=== PATIENT | male | born 1950 | race Caucasian/White ===

== ENCOUNTER → 2019-08-23 11:56 | Outpatient (CLI) | payer MEDICARE, SELFPAY ==
--- NOTE | 2019-08-23 12:25 | US_ITS ---
PROCEDURE: US KIDNEY CLINICAL INDICATION: R39.11 Hesitancy of micturition COMPARISON: No exams were available for comparison FINDINGS: The right kidney is [id number]. No hydronephrosis, cortical thinning, or renal mass or perinephric fluid collection is evident. The left kidney is [id number]. No hydronephrosis, cortical thinning, or perinephric fluid collection is evident. A cortical cyst 1.3 x 1.3 x 1.2 centimeters is seen in the upper pole. IMPRESSION: Cortical cyst of left kidney otherwise unremarkable exam. Dictated by: Sidney Brar 08/23/2019 13:35 Electronically signed by Sidney Brar in [facility] 08/23/2019 13:35
--- NOTE | 2019-08-23 12:25 | US_ITS ---
PROCEDURE: US URINARY BLADDER CLINICAL INDICATION: urinary urgency COMPARISON: No exams were available for comparison FINDINGS: The filled urinary bladder volume was calculated to be 110 cc. Bladder is suboptimally distended. No focal wall thickening mass or intraluminal stone is apparent. Post void bladder volume was calculated to be 5 cc. IMPRESSION: 5 cc postvoid residual. Dictated by: Sidney Brar 08/23/2019 14:04 Electronically signed by Sidney Brar in [facility] 08/23/2019 14:04
[2019-08-23 12:57] LABS: Basophils % 0.2 % (0.1-2.0); Eosinophils % 0.5 % (0.1-12.0); Hematocrit 45.4 % (42.0-52.0); Lymphocytes # 1.4 K/mm3 (0.7-4.5); Lymphocytes % 16.2 % (10-50); Mean Corpuscular HGB Conc 32.9 g/dL (31.8-35.4); Mean Corpuscular Hemoglobin 28.3 pg (27.0-31.2); Mean Corpuscular Volume 85.9 fl (80-94); Monocytes # 0.5 K/mm3 (0.1-1.0); Monocytes % 5.2 % (1.7-9.3); Neutrophils # 6.6 K/mm3 (1.8-7.8); Neutrophils % 77.8 % (37.0-80.0); Platelet Count 179 K/mm3 (142-424); Red Blood Count 5.29 M/mm3 (4.60-6.20); Red Cell Distribution Width 13.6 % (11.5-17.5); White Blood Count 8.5 K/mm3 (4.8-10.8)
[2019-08-23 16:29] LABS: Anion Gap 12.6 mEq/L (5-15); Blood Urea Nitrogen 16 mg/dl (9-20); Calcium 9.7 mg/dl (8.4-10.2); Carbon Dioxide 30 mmol/L (22.0-30.0); Chloride 97 mmol/L (98-107); Estimated Glomerular Filt Rate 83 ml/min (>60); GFR (African American) 101 ML/MIN (>60); Glucose 114 mg/dl (74-100); Potassium 3.6 mmoL/L (3.5-5.1); Sodium 136 mmol/L (136-145)
[2019-08-24 10:37] LABS: PSA, Free 0.34 ng/mL; Prostate Specific Ag 1.5 ng/mL (0.0-4.0)
== END ==
PROVIDERS: Visit Provider Nurse Practitioner Family
DX: R35.0 Frequency of micturition (principal); R39.11 Hesitancy of micturition; R39.15 Urgency of urination
CPT/HCPCS: 36415; 76770; 76857; 80048; 84153; 84154; 85025

== ENCOUNTER → 2019-08-28 07:37 | Outpatient (CLI) | payer MEDICARE, SELFPAY ==
--- NOTE | 2019-08-28 07:38 | CT_ITS ---
PROCEDURE: CT ABDOMEN PELVIS WO CON CLINICAL INDICATION: abdominal pain Mid epigastric pain COMPARISON: No exams were available for comparison TECHNIQUE: Axial images obtained with sagittal and coronal reformats. All CT scans at the facility use one or more dose reduction, viz: automated exposure control, ma/kV adjustment per patient size (including targeted exams where dose is matched to indication, i.e. head), or iterative reconstruction technique. Oral contrast was given. FINDINGS: LOWER THORAX: Coronary artery calcifications and/or stents noted ABDOMEN & PELVIS: The liver, gallbladder, spleen, and adrenal glands have an unremarkable appearance. No renal or ureteral calculi or hydronephrosis. There is a 13 mm hypodensity in the mid aspect of the left kidney anteriorly consistent with a renal cyst. There is diffuse fatty infiltration of the pancreas. No pancreatic mass. No evidence of appendicitis. There is diverticulosis of the sigmoid colon but no evidence of diverticulitis. No intestinal obstruction or free air. There is a mild amount of retained colonic feces. No pelvic mass or abnormal fluid collection. There is degenerative disc disease at L5-S1 with grade 1 spondylitic spondylolisthesis at L5-S1. IMPRESSION: 1. No acute finding. 2. Mild amount of retained colonic feces. Diverticulosis of the colon without evidence of diverticulitis. Dictated by: Addy Rowe MD 08/29/2019 07:11 Electronically signed by Addy Rowe MD in [facility] 08/29/2019 07:11
== END ==
PROVIDERS: Visit Provider Internal Medicine
DX: R10.9 Unspecified abdominal pain (principal); R11.0 Nausea; R06.00 Dyspnea, unspecified
CPT/HCPCS: 74176

== ENCOUNTER 2020-03-06 08:25 | Day surgery (SDC) | payer MEDICARE, SELFPAY ==
[2020-03-06] VITALS (9 sets, daily range): BP systolic 126–185; BP diastolic 59–93; PULSE 48–78; RESP 16–20; TEMP 36.8; O2SAT 94–99; BMI 23.9
--- NOTE | 2020-03-06 | IR_ITS ---
APPROVED REPORT Patient [facility]: [facility] Teacher: AL Aguilera RT (R) PROCEDURES 1. Pocket formation for Permanent Pacemaker Placement. 2. Placement of an atrial sensing and pacing coil into the right atrial appendage. 3. Placement of a ventricular sensing and pacing coil in the right ventricular apex. 4. Permanent Pacemaker Placement. INDICATION Symptomatic Bradycardia Informed consent was obtained prior to the procedure. COMPLICATIONS None Estimated Blood Loss: less than 10 ml TECHNIQUE 1% Lidocaine with epinephrine used to anesthetized the left anterior aspect of the chest. Scalpel was used to make the initial cutaneous incision while electrocautery was used to dissect down tinto the fascia. The fascia was lifted off the pectoralis muscle and digitally manipulated creating a pocket for the pacemaker. The patient was then placed in Trendelenburg position and the subclavian vein was accessed twice via the Selinger technique, there are two wires in the vein. A 6 Guamanian sheath was placed under fluoroscopic guidance into the subclavian vein over one of the wires while keeping the other wire in place within the subclavian vein. The dilator was removed from the sheath. Using fluoroscopic guidance, the ventricular lead was placed into the right ventricular apex, screwed and secured into place. Electronic interrogation proved acceptable thresholds and voltage within the lead. Using 3-0 silk, the ventricular lead was then secured into place. Lead was secured to the facia using the 3-0 silk. Following this, the sheath was pealed away. An additional 6 Guamanian fresh sheath and dilator was placed over the existing wire. Using fluoroscopic guidance, the atrial lead was the placed into the right atrial appendage and screwed and secured in place. Electrical interrogation demonstrated acceptable thresholds and voltage number. The atrial lead was then secured into place using 3-0 silk. 1 gram of Ancef was used to flush the pocket. Following the pacemaker generator being secured to the fascia and in place, Monocryl was used to close the subcutaneous layers while anthony were used to close the cutaneous layer. A pressure dressing was placed and the patient was transferred to the postop holding area in stable condition for postoperative care. INTERROGATION Generator Model number: [employer]IP DANG MANCUSO IS-1 L311 Generator Serial number: [id number] Atrial lead model number: INGEVITY [id number] Atrial lead serial number: [id number] P-wave: 3.0 mV Impedence: 667 Ohms Threshold: 0.4V Right Ventricular lead model number: LAURENITY 7841 Right Ventricular lead serial number: [id number] R-wave: 9.0 mV Impedence: 900 Ohms Threshold: 0.5 mV Pacing Parameters: Mode: DDDR Base/Max Track: 60/130 PPM No diaphragmatic stimulation at 10 volts. IMPRESSION 1. Successful pocket formation for Permanent Pacemaker Placement. 2. Successful placement of an atrial sensing and pacing coil into the right atrial appendage. 3. Successful placement of a ventricular sensing and pacing coil in the right ventricular apex. 4. Successful permanent Pacemaker Placement. PLAN 1. Post-op wound care. Electronically signed by : Alcides Rice, 03/07/2020 09:29:40
[2020-03-06 09:08] LABS: Basophils % 0.4 % (0.1-2.0); Chloride 107 mmol/L (98-107); Eosinophils # 0.2 K/mm3 (0.0-0.4); Eosinophils % 1.9 % (0.1-12.0); Hematocrit 40.1 % (42.0-52.0); Hemoglobin 13.1 g/dL (14.1-18.0); Lymphocytes % 24.7 % (10-50); Mean Corpuscular HGB Conc 32.7 g/dL (31.8-35.4); Mean Corpuscular Hemoglobin 28.9 pg (27.0-31.2); Mean Corpuscular Volume 88.4 fl (80-94); Mean Platelet Volume 8.5 fl (7.4-10.4); Monocytes # 0.5 K/mm3 (0.1-1.0); Monocytes % 6.1 % (1.7-9.3); Neutrophils # 5.4 K/mm3 (1.8-7.8); Neutrophils % 66.8 % (37.0-80.0); Platelet Count 165 K/mm3 (142-424); Red Blood Count 4.54 M/mm3 (4.60-6.20); Red Cell Distribution Width 14.3 % (11.5-17.5); Sodium 143 mmol/L (136-145)
[2020-03-06 09:11] LABS: Blood Urea Nitrogen 14 mg/dl (9-20); Calcium 9.3 mg/dl (8.4-10.2); Carbon Dioxide 26 mmol/L (22.0-30.0); Creatinine Clearance Estimated 71 mL/min (50-200); Estimated Glomerular Filt Rate 96 ml/min (>60); GFR (African American) 116 ML/MIN (>60); Glucose 97 mg/dl (74-100)
--- NOTE | 2020-03-06 09:49 | HMH.ANESCL ---
[facility] Anesthesia Checklist - Patient Identification Patient Identification: Arm Band - Structural Data Admitted From: Inpatient Planned Operative Procedure/s: Dual Chamber Pacemaker Consent for Planned Operative Procedure(s) Verified: Yes Verified Documents: Surgical Consent, History and Physical - NPO Status Verified Time NPO: 00:00 - Additional verifications Anesthesia Reactions: No - Airway Assessment C-Spine Mobility Assessed: Yes TMJ Mobility Assessed: Yes Dentition: Dentures-good fit (upper dentures. Pt requests to keep dentures in saying the are very tight fitting. Risks of dental damage discussed with pt. Pt verbalizes understanding) - Neurological Assessment Level of Consciousness: Awake, Alert - Anesthesia Plan Anesthesia Risk discussed: Yes Anesthesia Plan: Verified ASA Class: III Anesthesia Type: MAC [facility] History I have reviewed the patient's past medical history: Yes Medical History: Reports:: Coronary Artery Disease, Hyperlipidemia, Hypertension *Have you ever received a pneumonia vaccine?: Yes *Have you received a flu vaccine this season?: Yes Anesthesia experience/problems:: nac Laterality Cases: Left: Arthroscopy Shoulder Other Surgeries: Yes: Cardiac Catheterization, Coronary Stent, Sinus Surgery Amputation: No Fractures: No - *Social History Last grade of school completed: 9th or 10th Smoking Status: Former smoker Tobacco Type: cigarettes Alcohol Intake: never Substance Use Type: denies use *Occupational Status:: retired *Travel in the last 8 weeks: None Family Hx:: Hypertension, Coronary Artery Disease, Heart Attack
--- NOTE | 2020-03-06 12:01 | XR_ITS ---
PROCEDURE: XR CHEST PORTABLE CLINICAL HISTORY: Confirm pacemaker/AID placement COMPARISON: No exams were available for comparison FINDINGS: The cardiomediastinal silhouette and pulmonary vascularity are within normal limits. The left-sided cardiac pacemaker is seen with dual chamber electrodes both in good position. There are metallic surgical clips seen just beneath the left clavicle. There may be minimal atelectasis at the left base. The lung espinoza appear to be clear of active infiltrate. There is no pleural fluid. There is no pneumothorax. IMPRESSION: Satisfactory infraclavicular pacemaker Dictated by: Dr. John Gaelano MD 03/06/2020 12:59 Dr. John Galeano MD in [facility] 03/06/2020 12:59
== END 2020-03-06 13:35 | disposition home or self-care (01) ==
PROVIDERS: Visit Provider Internal Medicine
DX: I49.5 Sick sinus syndrome (principal); I25.10 Atherosclerotic heart disease of native coronary artery without angina pectoris; I10 Essential (primary) hypertension; I27.20 Pulmonary hypertension, unspecified; Z95.5 Presence of coronary angioplasty implant and graft; Z88.8 Allergy status to other drugs, medicaments and biological substances; Z79.02 Long term (current) use of antithrombotics/antiplatelets; Z79.899 Other long term (current) drug therapy
CPT/HCPCS: 33208; 71045; 80048; 85025; C1785; C1898

== ENCOUNTER → 2021-05-19 12:05 | Outpatient (CLI) | payer MEDICARE, SELFPAY ==
[2021-05-19 12:32] LABS: Basophils # 0.1 K/mm3 (0-0.2); Basophils % 0.9 % (0.1-2.0); Eosinophils # 0.2 K/mm3 (0.0-0.4); Eosinophils % 2.8 % (0.1-12.0); Hematocrit 40.5 % (42.0-52.0); Hemoglobin 13.6 g/dL (14.1-18.0); Lymphocytes # 1.6 K/mm3 (0.7-4.5); Lymphocytes % 23.5 % (10-50); Mean Corpuscular HGB Conc 33.6 g/dL (31.8-35.4); Mean Corpuscular Hemoglobin 29.2 pg (27.0-31.2); Mean Corpuscular Volume 86.8 fl (80-94); Mean Platelet Volume 9.7 fl (7.4-10.4); Monocytes # 0.4 K/mm3 (0.1-1.0); Monocytes % 5.8 % (1.7-9.3); Neutrophils # 4.7 K/mm3 (1.8-7.8); Platelet Count 193 K/mm3 (142-424); Red Blood Count 4.66 M/mm3 (4.60-6.20); Red Cell Distribution Width 14.6 % (11.5-17.5); White Blood Count 6.9 K/mm3 (4.8-10.8)
[2021-05-19 12:51] LABS: Alanine Aminotransferase 25 U/L (12-78); Albumin Level 4.1 g/dl (3.5-5.0); Alkaline Phosphatase 111 U/L (38-126); Anion Gap 7.5 mEq/L (5-15); Aspartate Amino Transferase 29 U/L (17-59); Bilirubin,Direct 0.1 mg/dl (0.0-0.4); Bilirubin,Indirect 0.3 mg/dL (0.0-0.9); Bilirubin,Total 0.4 mg/dl (0.2-1.3); Bilirubin,Unconjugated 0.4 mg/dL (0.0-1.1); Blood Urea Nitrogen 18 mg/dl (9-20); Carbon Dioxide 33 mmol/L (22.0-30.0); Chloride 104 mmol/L (98-107); Chol/HDL Ratio 2.4 (1-3.5); Cholesterol 79 mg/dl (140-200); Estimated Glomerular Filt Rate 95 ml/min (>60); GFR (African American) 115 ML/MIN (>60); Glucose 93 mg/dl (74-100); HDL Cholesterol 33 mg/dl (40-60); Potassium 4.5 mmoL/L (3.5-5.1); Sodium 140 mmol/L (136-145); Total Protein,Serum 6.8 g/dl (6.3-8.2); Triglycerides 72 mg/dl (30-150); VLDL Cholesterol 14 mg/dL (0-40)
[2021-05-19 13:02] LABS: Direct LDL Cholesterol 49.26 mg/dL (100-129)
[2021-05-19 13:08] LABS: Free T4 (Free Thyroxine) 1.23 ng/dl (0.78-2.19)
[2021-05-19 13:24] LABS: Thyroid Stimulating Hormone 2.95 uIU/mL (0.465-4.68)
== END ==
PROVIDERS: Visit Provider Urology
DX: E78.2 Mixed hyperlipidemia (principal); I10 Essential (primary) hypertension; I25.10 Atherosclerotic heart disease of native coronary artery without angina pectoris; I27.20 Pulmonary hypertension, unspecified; I48.91 Unspecified atrial fibrillation; Z95.0 Presence of cardiac pacemaker
CPT/HCPCS: 36415; 80048; 80061; 80076; 84439; 84443; 85025

== ENCOUNTER → 2022-06-08 07:24 | Outpatient (CLI) | payer MEDICARE, SELFPAY ==
--- NOTE | 2022-06-08 08:45 | HMH.ITSHM ---
Current Home Medications as stated by this patient Selvin Matute or patient services representative. []PANTOPRAZOLE LISINOPRIL CLOOPIDOGREL BISOPROLOL ATORVASTATIN AMLODIPINE
== END ==
PROVIDERS: PCP Internal Medicine; Visit Provider Nurse Practitioner Family
DX: E78.2 Mixed hyperlipidemia (principal); I10 Essential (primary) hypertension; I25.10 Atherosclerotic heart disease of native coronary artery without angina pectoris; I27.20 Pulmonary hypertension, unspecified; I48.91 Unspecified atrial fibrillation; I61.9 Nontraumatic intracerebral hemorrhage, unspecified; K21.9 Gastro-esophageal reflux disease without esophagitis; R07.89 Other chest pain; Z87.891 Personal history of nicotine dependence; Z95.0 Presence of cardiac pacemaker
CPT/HCPCS: 78452; 93017; 93306; A9502; J2785

== ENCOUNTER 2023-11-30 09:57 | Outpatient (CLI) | payer MEDICARE, SELFPAY ==
[2023-11-30 10:29] LABS: Basophils # 0.1 K/mm3 (0-0.2); Eosinophils # 0.1 K/mm3 (0.0-0.4); Eosinophils % 2.2 % (0.1-12.0); Hematocrit 47.8 % (42.0-52.0); Hemoglobin 15.4 g/dL (14.1-18.0); Lymphocytes # 1.2 K/mm3 (0.7-4.5); Lymphocytes % 18.7 % (10-50); Mean Corpuscular HGB Conc 32.2 g/dL (31.8-35.4); Mean Corpuscular Hemoglobin 29.7 pg (27.0-31.2); Mean Corpuscular Volume 92.1 fl (80-94); Mean Platelet Volume 9.4 fl (7.4-10.4); Monocytes # 0.3 K/mm3 (0.1-1.0); Monocytes % 4.8 % (1.7-9.3); Neutrophils # 4.5 K/mm3 (1.8-7.8); Neutrophils % 73.3 % (37.0-80.0); Platelet Count 164 K/mm3 (142-424); Red Blood Count 5.19 M/mm3 (4.60-6.20); Red Cell Distribution Width 13.9 % (11.5-17.5); White Blood Count 6.1 K/mm3 (4.8-10.8)
[2023-11-30 11:13] LABS: Alanine Aminotransferase 18 U/L (12-78); Albumin Level 4.1 g/dl (3.5-5.0); Alkaline Phosphatase 112 U/L (38-126); Anion Gap 11.8 mEq/L (5-15); Aspartate Amino Transferase 29 U/L (17-59); Bilirubin,Indirect 0.8 mg/dL (0.0-0.9); Bilirubin,Total 0.8 mg/dl (0.2-1.3); Bilirubin,Unconjugated 0.8 mg/dL (0.0-1.1); Blood Urea Nitrogen 16 mg/dl (9-20); Calcium 9.2 mg/dl (8.4-10.2); Carbon Dioxide 30 mmol/L (22.0-30.0); Chloride 102 mmol/L (98-107); Chol/HDL Ratio 3.1 (1-3.5); Cholesterol 150 mg/dl (140-200); Estimated Glomerular Filt Rate 65 ml/min (>60); GFR (African American) 79 ML/MIN (>60); Glucose 99 mg/dl (74-100); HDL Cholesterol 48 mg/dl (40-60); Potassium 3.8 mmoL/L (3.5-5.1); Sodium 140 mmol/L (136-145); Total Protein,Serum 7.1 g/dl (6.3-8.2); Triglycerides 111 mg/dl (30-150); VLDL Cholesterol 22 mg/dL (0-40)
[2023-11-30 11:24] LABS: Direct LDL Cholesterol 85.26 mg/dL (100-129)
[2023-11-30 11:42] LABS: Thyroid Stimulating Hormone 2.08 uIU/mL (0.465-4.68)
== END 2023-11-30 23:59 | disposition home or self-care (01) ==
LOC: LAB 09:59
PROVIDERS: Visit Provider Physician Assistant
DX: R53.83 Other fatigue (principal); I48.91 Unspecified atrial fibrillation; I25.10 Atherosclerotic heart disease of native coronary artery without angina pectoris; E78.2 Mixed hyperlipidemia; Z87.891 Personal history of nicotine dependence
CPT/HCPCS: 36415; 80048; 80061; 80076; 83735; 84443; 85025

== ENCOUNTER 2023-12-19 06:30 | Outpatient (CLI) | payer MEDICARE, SELFPAY ==
--- NOTE | 2023-12-19 06:37 | CT_ITS ---
FINAL REPORT TECHNIQUE: Axial images were performed through the brain.This study was performed with techniques to keep radiation doses as low as reasonably achievable, (ALARA). Individualized dose reduction techniques using automated exposure control or adjustment of mA and/or kV according to the patient''s size were employed. CLINICAL HISTORY: Intraparenchymal brain hematoma FINDINGS: There is global atrophy. The ventricles are normal in size for the degree of atrophy. There is no extra-axial fluid or midline shift. There is no evidence of acute hemorrhage or mass. IMPRESSION: Atrophy. No acute intracranial process. Reviewed, Interpreted and Dictated by Rachel Ortez MD Transcribed by Beti Graham Authenticated and . [facility]
== END 2023-12-19 23:59 | disposition home or self-care (01) ==
LOC: RAD 06:30
PROVIDERS: Visit Provider Specialist
DX: S06.32AA Contusion and laceration of left cerebrum with loss of consciousness status unknown, initial encounter; R55 Syncope and collapse; S06.33 Contusion and laceration of cerebrum, unspecified
CPT/HCPCS: 70450

== ENCOUNTER 2023-12-27 13:44 | Emergency (ER) | payer MEDICARE, SELFPAY ==
[2023-12-27 13:45] VITALS: BP 216/114; PULSE 60; RESP 20; TEMP 36.6; O2SAT 98; BMI 24.3
--- NOTE | 2023-12-27 14:07 | HMH.EDGENADL ---
Discharge Plan Disposition Patient Disposition: Home, Self-Care Condition: Good Prescriptions Prescriptions: New amlodipine 10 mg tablet 10 mg PO DAILY Qty: 30 0RF No Action bisoprolol fumarate 10 mg tablet 10 mg PO DAILY Qty: 30 2RF pantoprazole [Protonix] 40 mg tablet,delayed release (DR/EC) 40 mg PO DAILY Qty: 90 3RF clopidogrel 75 mg tablet 75 mg PO DAILY Qty: 30 0RF atorvastatin [Lipitor] 40 mg tablet 40 mg PO QHS Qty: 30 0RF Referrals Follow up/Referrals: Provider,Referral, [Primary Care Provider] - See instructions Activity Restrictions/Add. Instructions Additional Instructions/Restrictions: You were evaluated in the ER. You are appropriate for discharge at this time. Continue taking your home medications as prescribed. START taking the new amlodipine presription tomorrow. GO TO the cardiology office tomorrow at 1 PM for follow-up. Make an appointment with your primary care physician for reevaluation in a few days. Return to the ER with new, worsening, or otherwise concerning symptoms. Clinical Impressions Clinical Impression: HTN (hypertension) Qualifiers: Hypertension type: essential hypertension Qualified Code(s): I10 - Essential (primary) hypertension Discharge ED Provider: Rob Manrique Adult HPI General Chief complaint: Recheck/Abnormal Lab/Rx Stated complaint: elevated bp Time Seen by Provider: 12/27/23 13:57 History of Present Illness HPI narrative: 73-year-old male with history of hypertension, pacemaker, hyperlipidemia, CAD presents to the ER for concerns of hypertension. Patient states he was being assessed in the sleep clinic when they became concerned for hypertension with systolic above 200. Patient is asymptomatic but was instructed to present to to the ER for evaluation. Patient denies headache, dizziness, numbness, tingling, weakness, chest pain, shortness of breath, vomiting, diarrhea, or any other associated symptoms. Patient states he takes bisoprolol 10 mg daily, however he missed his dose yesterday. He also states he took a nasal decongestant last night, he is unsure if this may have contributed to his high blood pressure today. Patient states he cannot feel when his blood pressure is high and feels normal at this time. Patient does not follow with a primary care doctor, the cardiology office prescribes his antihypertensives. Related Data Previous Rx's Medication Instructions Recorded pantoprazole 40 mg tablet,delayed 40 mg PO DAILY #90 tabs 02/07/23 release (Protonix) clopidogrel 75 mg tablet 75 mg PO DAILY #30 tabs 11/03/23 bisoprolol fumarate 10 mg tablet 10 mg PO DAILY #30 tabs 11/30/23 atorvastatin 40 mg tablet (Lipitor) 40 mg PO QHS #30 tabs 12/05/23 amlodipine 10 mg tablet 10 mg PO DAILY #30 tabs 12/27/23 Allergies Allergy/AdvReac Type Severity Reaction Status Date / Time morphine Allergy Mild Verified 12/27/23 12:36 blue dye Allergy Verified 12/27/23 12:36 [facility] Disclaimer: The information contained in this section may have been updated after the patient was seen, as this information can be updated by other users. Medical History Sick sinus syndrome Symptomatic bradycardia Syncope Surgical History History of facial surgery Hx of shoulder surgery Cardiac pacemaker in situ Family History Other Cancer Heart attack Hypertension Social History Smoking Status: Never smoker alcohol intake: never substance use type: denies use current occupational status: retired Travel in the last 8 weeks: Inside the [place] ROS Obtained: Yes All systems reviewed & no additional complaints except as documented Constitutional Constitutional: Denies chills, Denies fever(s), Denies headache(s) and Denies weakness Eyes Eyes: Denies change in vision ENT Ears, Nose, Mouth, and Throat: Denies dizziness, Denies headache(s), Denies nasal congestion and Denies sore throat Cardiovascular Cardiovascular: Denies chest pain, Denies dyspnea and Denies leg edema Respiratory Respiratory: Denies cough and Denies dyspnea Gastrointestinal Gastrointestingal: Denies constipation, diarrhea, nausea or vomiting Genitourinary Male Genitourinary: Denies difficulty urinating Musculoskeletal Musculoskeletal: Denies arthralgias, Denies myalgias, Denies numbness and Denies tingling Integumentary/Breasts Skin/Breast: Denies change in pigmentation Neurologic Neurologic: Denies dizziness, Denies headache(s), Denies numbness, Denies tingling and Denies weakness Physical Exam General General appearance: alert and in no apparent distress Head Head exam: atraumatic and normocephalic Eye Eye exam: Present PERRL and EOMI ENT ENT exam: Present mucous membranes moist Neck Neck exam: Present normal inspection and full ROM Chest Chest inspection: Present symmetric chest wall rise Respiratory Respiratory exam: Present normal lung sounds bilaterally; Absent respiratory distress, wheezes or stridor Cardiovascular Cardiovascular exam: Present regular rate and normal rhythm Abdominal Exam Abdominal exam: Present soft; Absent distention or tenderness Extremities Exam Extremities exam: Present full ROM; Absent edema Neurological Exam Neurological exam: Present alert and oriented X3; Absent motor sensory deficit Psychiatric Psychiatric exam: Present normal affect and normal mood Skin Skin exam: Present warm and dry Medical Decision Making Medical Records Medical records reviewed: Yes I reviewed the patient's medical records. MR Comment: Cardiology office prescribed patient's bisoprolol Jean-Claude Inquiry Pt receiving controlled substance: No Vital Signs: 12/27/23 13:45 12/27/23 15:04 Temperature 97.9 F Temperature Source Oral Pulse Rate [Left Radial] 60 Respiratory Rate 20 Blood Pressure 195/107 H Blood Pressure [Right Arm] 216/114 H Blood Pressure Mean [Right Arm] 148 02 Sat by Pulse Oximetry 98 Lab Data Lab Results 12/27/23 14:34: Sodium 139, Potassium 3.9, Chloride 103, Carbon Dioxide 29, Anion Gap 10.9, BUN 19, Creatinine 1.10, Estimated Creat Clear 62, Estimated GFR 65, Est GFR ( Amer) 79, Glucose 96, Calcium 8.8 12/27/23 14:34 Orders (Tests/Meds): ED MEDICATIONS Discontinued Medications Generic Name Dose Route Start Last Admin Trade Name Freq PRN Reason Stop Dose Admin Amlodipine Besylate 10 mg 12/27/23 14:05 12/27/23 14:40 Amlodipine 10mg Tablet PO 12/27/23 14:06 10 mg ONCE ONE Administration ORDERS Category Date Time Status BMP [Basic Metabolic Panel] Stat Lab 12/27/23 14:34 Completed ECG Request Stat Y 12/27/23 14:15 Ordered Medical Decision Narrative: In summary, this 73-year-old male with history of CAD, hypertension which are comorbidities of current condition and increases overall morbidity presents to the emergency department today with concerns of asymptomatic hypertension from outside office. On initial evaluation patient is hemodynamically stable though he is hypertensive with blood pressure 205/113 on arrival, he is completely asymptomatic, exam is benign. Differential diagnosis includes but is not limited to hypertension, medication noncompliance, medication side effect from recent decongestant use. BMP was ordered to assess for kidney function, EKG ordered to assess for possible arrhythmia genic abnormalities or findings of hypertrophic changes. I discussed this case with Dr. Rice. Given patient is completely asymptomatic, he recommended that the patient receive amlodipine in the ER as well as a prescription for outpatient management. He also stated patient can be seen in his office tomorrow at 1 PM for outpatient follow-up. Patient is comfortable with this plan. He received amlodipine in the ER. EKG personally interpreted demonstrates normal paced rhythm, rate 59, normal axis, VA prolonged at 204, QTc normal at 413, no STEMI Labs personally reviewed demonstrate no findings of kidney dysfunction, normal BMP. On reassessment he continues to be stable. Blood pressure is gradually improving, systolic is now below 200. He continues to be asymptomatic. He is appropriate for discharge at this time. Patient was given instructions on symptomatic management, follow up instructions, and return precautions for the emergency department. Patient indicated understanding and was discharged in stable condition. Critical Care Critical Care Time Critical Care Time: No
--- NOTE | 2023-12-27 14:37 | ECG_ITS ---
APPROVED REPORT Exam: Resting ECG HR:59 bpm ECG Measurements Heart Rate 59 AXES UT 204 P 74 QRSd 98 QRS 34 QT 413 T 33 QTc 413 Conclusion ELECTRONIC ATRIAL PACEMAKER ABNORMAL RHYTHM ECG Electronically signed by : BENJA CRAWFORD, 12/28/2023 21:38:29
[2023-12-27] MEDS: AMLODIPINE 10MG TABLET 10 MG PO (14:40)
[2023-12-27 14:56] LABS: Chloride 103 mmol/L (98-107); Potassium 3.9 mmoL/L (3.5-5.1); Sodium 139 mmol/L (136-145)
[2023-12-27 14:59] LABS: Anion Gap 10.9 mEq/L (5-15); Blood Urea Nitrogen 19 mg/dl (9-20); Calcium 8.8 mg/dl (8.4-10.2); Carbon Dioxide 29 mmol/L (22.0-30.0); Creatinine Clearance Estimated 62 mL/min (50-200); Estimated Glomerular Filt Rate 65 ml/min (>60); GFR (African American) 79 ML/MIN (>60); Glucose 96 mg/dl (74-100)
[2023-12-27 15:04] VITALS: BP 195/107
[2023-12-27 15:49] VITALS: BP 195/107; PULSE 60; RESP 20; TEMP 36.6; O2SAT 98
== END 2023-12-27 15:50 | disposition home or self-care (01) ==
PROVIDERS: Emergency Provider Emergency Medicine
DX: R53.83 Other fatigue (principal); I10 Essential (primary) hypertension; E78.5 Hyperlipidemia, unspecified; I25.10 Atherosclerotic heart disease of native coronary artery without angina pectoris; Z95.0 Presence of cardiac pacemaker
CPT/HCPCS: 80048; 93005; 99283